=== PATIENT | female | born 1950 | race African-American/Black ===

== ENCOUNTER 2016-09-29 09:12 | Day surgery (SDC) | payer OTHER ==
[2016-09-16 14:24] VITALS: BMI 35.3
[2016-09-29] MEDS ORDERED: MIDAZOLAM HCL 2 MG/2 ML SINGLE DOSE VIAL ONE (11:10)
[2016-09-29] MEDS ORDERED: BUPIVACAINE HCL/PF 2.5 MG/ML - 30 ML VIAL IJ ONE (11:11)
[2016-09-29] MEDS ORDERED: BUPIVACAINE HCL/PF 0.5% (5MG/ML) 10 ML VIAL ONE (11:12)
[2016-09-29] MEDS ORDERED: LIDOCAINE HCL 1%, 10 MG/ML (20ML VIAL) ONE (11:12)
[2016-09-29] MEDS ORDERED: LIDOCAINE 1%/EPI 1:100000 (20 ML MULTI DOSE VIAL) ONE (11:12)
[2016-09-29 13:23] VITALS: BP 119/60; PULSE 59; TEMP 97.8
--- NOTE | 2016-09-29 17:05 | OP ---
DATE OF OPERATION: 09/29/2016 PREOPERATIVE DIAGNOSIS: Soft tissue mass right mid back. POSTOPERATIVE DIAGNOSIS: Soft tissue mass right mid back (spinal tap pending, suspected dermal occlusion cyst). PROCEDURE: Excision soft tissue mass right mid back/intermediate wound closure (4 cm). OPERATING SURGEON: Gibran Rowan M.D. ANESTHESIA: 1% lidocaine with epinephrine (10 mL), monitored anesthesia care. ANESTHESIOLOGIST: Arian Canchola M.D. HISTORY: A 66-year-old woman who presents for excision of a soft tissue mass in the mid back. Indications, alternatives, possible complications reviewed. Consent obtained. DESCRIPTION OF PROCEDURE: With the patient in the prone position, after IV sedation, the mid back was prepped and draped in sterile fashion using chlorhexidine. A longitudinal 4-cm incision was made about the lesion and deepened into the subcutaneous space. Lesion was excised in its entirety with rim surrounding overlying and surrounding skin as well as underlying subcutaneous tissue. After delivery of the mass, adequate hemostasis was assured. The wound was closed in layers. The subcutaneous tissues were approximated using interrupted 3-0 chromic suture. The subcuticular layer was approximated using interrupted 3-0 Vicryl suture. Skin edge was approximated using a continuous 5-0 nylon suture. Bacitracin applied. Dressings applied. Procedure terminated. Patient will be transferred from OR without any difficulty. GIBRAN ROWAN M.D. SAULO/[id number] MTDD
--- NOTE | 2016-09-30 15:31 | PATH ---
Surgical Pathology Report Patient Name: PAIGE GANN [facility]. Rec. #: [id number] /Age/Gender: 1950 (Age: 66) / F Account: [id number] Location: [facility] AMBUL[facility]ORY Taken: 09/29/2016 Received: 09/29/2016 Reported: 09/30/2016 Physicians: Gibran Rowan M.D. 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 Electronically Signed Jason Bueno M.D. Gross Description Received in formalin labeled "soft tissue mass right mid back," is a 3.5 x 1.2 cm hooker, elliptical, unoriented portion of skin excised to a depth of 1.6 cm. The epidermal surface displays a central 0.2 cm in greatest dimension defect. Sectioning reveals an intact cyst containing brown sebaceous material. A hospital insurance representative section is submitted in one cassette. /09/29/2016 [facility]
== END 2016-09-29 13:08 | disposition home or self-care (01) ==
LOC: FASU 09:12
PROVIDERS: ATTEND Surgery
PROC: 0JQ70ZZ Repair Back Subcutaneous Tissue and Fascia, Open Approach (ICD-10-PCS; 2016-09-29)
PROC: 0HB6XZZ Excision of Back Skin, External Approach (ICD-10-PCS; 2016-09-29)
PROC: 0HB6XZZ Excision of Back Skin, External Approach (ICD-10-PCS; principal; 2016-09-29 11:39)
DX: L72.0 Epidermal cyst (principal)
CPT/HCPCS: 88304-TC